=== PATIENT | male | born 1970 | race Caucasian/White ===

== ENCOUNTER 2021-03-06 10:28 | Emergency (ER) | payer SELFPAY ==
[~2021-03-06] VITALS: Ht 160 cm; Wt 94.8 kg
[2021-03-06 10:37] VITALS: BP 124/83
--- NOTE | 2021-03-06 10:41 | NUR ---
PT TAKEN TO LOBBY.
--- NOTE | 2021-03-06 11:04 | NUR ---
PT TAKEN TO [facility]
--- NOTE | 2021-03-06 11:09 | NUR ---
DR. OJEDA WITH PT FOR FURTHER EVALUATION.
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
[2021-03-06] MEDS ORDERED: MORPHINE SULFATE 2 MG/ML SYR IVP ONE (11:40)
[2021-03-06 11:53] LABS: BASOPHILS # (AUTO) 0.1 K/uL (0.00-0.22); BASOPHILS % (AUTO) 0.8 % (0.0-2.0); EOSINOPHILS # (AUTO) 0.1 K/uL (0-0.4); EOSINOPHILS % (AUTO) 0.8 % (0.0-4.0); HEMATOCRIT 45.2 % (36-52); HEMOGLOBIN 15.3 g/dL (12.0-18.0); LYMPHOCYTES # (AUTO) 1.3 K/uL (2.0-11.5); LYMPHOCYTES % (AUTO) 17.2 % (20.5-51.1); MEAN CORPUSCULAR HEMOGLOBIN 33 pg (27-31); MEAN CORPUSCULAR HGB CONC 34 g/dL (33-37); MEAN CORPUSCULAR VOLUME 96.8 fL (80-94); MONOCYTES # (AUTO) 0.9 K/uL (0.8-1.0); MONOCYTES % (AUTO) 11.7 % (1.7-9.3); NEUTROPHILS # (AUTO) 5.3 K/uL (1.8-7.7); NEUTROPHILS % (AUTO) 69.5 % (42.2-75.2); PLATELET COUNT (AUTO) 177 K/uL (140-450); RED BLOOD CELL COUNT(AUTO) 4.67 MIL/uL (4.20-6.10); RED CELL DISTRIBUTION WIDTH 13.3 % (11.6-13.7); WHITE BLOOD COUNT (AUTO) 7.6 K/uL (4.8-10.8)
[2021-03-06 13:18] LABS: ALBUMIN 3.8 g/dL (3.4-5.0); ANION GAP 18.2 (8-16); CARBON DIOXIDE 24.7 mmol/L (21-32); CREATININE 0.8 mg/dL (0.6-1.3); POTASSIUM 3.9 mmol/L (3.5-5.1); TOTAL BILIRUBIN 1.4 mg/dL (0.0-1.0)
--- NOTE | 2021-03-06 13:20 | NUR ---
Patient taken to XRAY via wheelchair.
[2021-03-06] MEDS ORDERED: IBUP-1842 PO (14:04)
[2021-03-06] MEDS ORDERED: CYCL-654 PO (14:04)
[2021-03-06] MEDS ORDERED: LID5T TP (14:04)
[2021-03-06 14:30] VITALS: BP 124/83
--- NOTE | 2021-03-06 14:31 | NUR ---
Patient discharged with v/s stable. Written and verbal after care instructions ABOUT CONTUSION AND CHEST WALL PAIN given and explained. Patient alert, oriented and verbalized understanding of instructions. Ambulatory with steady gait. All questions addressed prior to discharge. ID band removed. Patient advised to follow up with PMD. Rx of CYCLOBENZAPINE HCL, IBUPROFEN, AND LIDOCAINE HYD PATCH given. Patient educated on indication of medication including possible reaction and side effects. Opportunity to ask questions provided and answered.
== END 2021-03-06 14:31 | disposition home or self-care (01) ==
LOC: MED 10:28
DX: S20.211A Contusion of right front wall of thorax, initial encounter (principal); Z79.899 Other long term (current) drug therapy; X58.XXXA Exposure to other specified factors, initial encounter; Y93.89 Activity, other specified; Y92.89 Other specified places as the place of occurrence of the external cause; Y99.8 Other external cause status
CPT/HCPCS: 36415; 71101; 80053; 85025; 93005; 96374; 99285; J2270